=== PATIENT | male | born 1945 | race Caucasian/White ===

== ENCOUNTER 2020-08-14 16:00 | Inpatient (IN) | payer MEDICARE, OTHER ==
[~2020-08-14] VITALS: Ht 167.6 cm; Wt 83.0 kg
[2020-08-14 17:37] LABS: BASOPHILS # (AUTO) 0.1 K/uL (0.0-8.0); BASOPHILS % (AUTO) 0.3 % (0.0-2.0); HEMATOCRIT 28.7 % (36.7-47.1); HEMOGLOBIN 9.7 g/dL (12.5-16.3); LYMPHOCYTES # (AUTO) 1.3 K/uL (20.0-40.0); LYMPHOCYTES % (AUTO) 5.2 % (20.5-51.5); MEAN CORPUSCULAR HEMOGLOBIN 30.6 uug (23.8-33.4); MEAN CORPUSCULAR HGB CONC 34 g/dL (32.5-36.3); MEAN CORPUSCULAR VOLUME 90.3 fL (73.0-96.2); MONOCYTES # (AUTO) 1.2 K/uL (2.0-10.0); MONOCYTES % (AUTO) 4.8 % (0.0-11.0); NEUTROPHILS # (AUTO) 22.5 K/uL (1.8-8.9); NEUTROPHILS % (AUTO) 89.7 % (38.5-71.5); PLATELET COUNT (AUTO) 300 K/uL (152-348); RED BLOOD CELL COUNT(AUTO) 3.18 MIL/uL (4.06-5.63); WHITE BLOOD COUNT (AUTO) 25.1 K/uL (3.6-10.2)
[2020-08-14 17:48] LABS: CARBON DIOXIDE 24 mmol/L (21-32); CHLORIDE 104 mmol/L (98-107); CREATININE 2.1 mg/dL (0.6-1.3); GLUCOSE 209 mg/dL (74-106); POTASSIUM 4.4 mmol/L (3.5-5.1); UREA NITROGEN, BLOOD 36 mg/dL (7-18)
[2020-08-14 17:54] LABS: ETHANOL < 3 MG/DL (0-0)
[2020-08-14 17:56] LABS: ALANINE AMINOTRANSFERASE 17 U/L (16-63); ALKALINE PHOSPHATASE 78 U/L (50-136); ASPARTATE AMINOTRANSFERASE 8 U/L (15-37); BILIRUBIN,DIRECT 0.1 mg/dL (0.0-0.2); BILIRUBIN,TOTAL 0.3 mg/dL (0.2-1.0); CREATINE KINASE, TOTAL 77 U/L (39-308); TOTAL PROTEIN, SERUM 7.2 g/dL (6.4-8.2)
[2020-08-14 17:57] LABS: ACETAMINOPHEN < 2.0 ug/mL (10-30)
[2020-08-14 18:00] LABS: THYROID STIMULATING HORMONE 0.776 mIU/mL (0.358-3.740)
[2020-08-14] MEDS ORDERED: TUBE5VIA2 ID (18:09)
[2020-08-14] MEDS ORDERED: LINA5TAB PO (18:09)
[2020-08-14] MEDS ORDERED: BISA10SU61 RC (18:09)
[2020-08-14] MEDS ORDERED: VITA-287 PO (18:09)
[2020-08-14] MEDS ORDERED: DOCU100C36 PO (18:09)
[2020-08-14] MEDS ORDERED: INSU3INS6 SQ (18:09)
[2020-08-14] MEDS ORDERED: LISI10TA29 PO (18:09)
[2020-08-14] MEDS ORDERED: ASCO500T10 PO (18:09)
[2020-08-14] MEDS ORDERED: SENN-22 PO (18:09)
[2020-08-14] MEDS ORDERED: MAG-55 PO (18:09)
[2020-08-14] MEDS ORDERED: METF-495 PO (18:09)
[2020-08-14] MEDS ORDERED: ICOS1CAP2 (18:09)
[2020-08-14] MEDS ORDERED: MV-M1TAB18 PO (18:09)
[2020-08-14] MEDS ORDERED: POLY17PO4 GT (18:09)
[2020-08-14] MEDS ORDERED: CEFTRIAXONE 1 G in IV DEXTROSE 5% 50 ML IV ONE (19:30)
--- NOTE | 2020-08-14 20:40 | NUR ---
After inserting iv patient became cooperative with no distress noted. Restraints removed.
[2020-08-14] MEDS ORDERED: CEFTRIAXONE /D5W 50ML IVPB **ER PYXIS IV ONE (20:45)
[2020-08-14] MEDS ORDERED: HALOPERIDOL LACTATE 5 MG/1 ML VIAL IV ONE (21:00)
[2020-08-14] MEDS ORDERED: diphenhydrAMINE 50 MG/1 ML VIAL IV ONE (21:00)
[2020-08-14] MEDS ORDERED: LORAZEPAM 2 MG/1 ML VIAL IV ONE (21:00)
[2020-08-14 21:03] LABS: *BILIRUBIN,URIN NEGATIVE (NEGATIVE); *BLOOD, URINE 3+ (NEGATIVE); *COLOR,URINE YELLOW (YELLOW); *KETONES,URINE NEGATIVE (NEGATIVE); *UROBILINOGEN,URINE 0.2 E.U./dl (NORMAL); LEUKOCYTE ESTERASE ,URINE TRACE (NEGATIVE); NITRITE, URINE NEGATIVE (NEGATIVE); PH,URINE 5.5 (5.0-8.0); UGLUCOSE NEGATIVE (NEGATIVE)
[2020-08-14] MEDS ORDERED: LORAZEPAM 2 MG/1 ML VIAL ONE (21:04)
[2020-08-14] MEDS ORDERED: diphenhydrAMINE 50 MG/1 ML VIAL ONE (21:05)
[2020-08-14] MEDS ORDERED: HALOPERIDOL LACTATE 5 MG/1 ML VIAL ONE (21:05)
[2020-08-14 21:07] LABS: *CLARITY,URINE HAZY (CLEAR)
[2020-08-14 21:13] LABS: BACTERIA,URINE MANY /HPF (NONE SEEN); RBC,URINE 50-80 /HPF (0-3); SQUAMOUS EPITHELIAL CELL,UR FEW /HPF (NONE SEEN)
[2020-08-14 21:23] LABS: *AMPHETAMINE, URINE NEGATIVE (NEGATIVE); *CANNABINOID, URINE NEGATIVE (NEGATIVE); *COCCAINE, URINE NEGATIVE (NEGATIVE); *OPIATE, URINE NEGATIVE (NEGATIVE); *PHENCYCLIDINE SCREEN,URINE NEGATIVE (NEGATIVE)
--- NOTE | 2020-08-14 21:45 | NUR ---
non destructive testing technician Aj called with critical results for patient: Lactic acid 4.4, MD Olivarez made aware. Pending orders at this time.
[2020-08-14] MEDS ORDERED: BISACODYL 10 MG SUPP.RECT RC PRN (23:15)
[2020-08-14] MEDS ORDERED: ONDANSETRON 4 MG/2 ML VIAL IV PRN (23:15)
[2020-08-14] MEDS ORDERED: MORPHINE SULFATE 2 MG/1 ML DISP.SYRIN IV PRN (23:15)
[2020-08-14] MEDS ORDERED: ACETAMINOPHEN 325 MG TABLET PO PRN (23:15)
[2020-08-14] MEDS ORDERED: VANCOMYCIN IV 1,500 MG in IV DEXTROSE 5% 500 ML IV ONE (23:45)
--- NOTE | 2020-08-15 00:30 | NUR ---
Transfered to 3rd floor Tele via [employer] for [employer].
--- NOTE | 2020-08-15 00:35 | NUR ---
ADMITTED PATIENT IN TELE TD UNDER THE CARE OF DR MAYER. PATIENT AWAKE WITH FORGETFULNESS, PATIENT AGGRESSIVE, HOSTILE WHEN GIVING CARE. PATIENT SPEAK [place] R[place] BUT UNDERSTAND FRENCH. PATIENT RESISTIVE WITH CARE, CONT TO MONITOR.
[2020-08-15] MEDS ORDERED: VANCOMYCIN 1000 MG VIAL ONE (01:16)
[2020-08-15] MEDS ORDERED: VANCOMYCIN HCL 500 MG VIAL ONE (01:17)
[2020-08-15] MEDS ORDERED: PIPERACILLIN/TAZOBACTAM/D5W 100 ML ONE (01:18)
[2020-08-15 01:56] VITALS: BP 121/40
[2020-08-15] MEDS: IV 1/2NS 1000 ML 1,000 ML IV PRN ×2 (02:31→22:07)
[2020-08-15] MEDS: PIPERACILLIN/TAZO 2.25 G in IV DEXTROSE 5% 50 ML IV SCH ×4 (02:31→20:18)
[2020-08-15 04:06] VITALS: BP_SYST 114; BP_SYST 151; BP_DIAS 53; BP_DIAS 66
[2020-08-15] MEDS: LORAZEPAM 2 MG/1 ML VIAL IV PRN (05:18)
--- NOTE | 2020-08-15 05:22 | NUR ---
Patient alert awake but with confusion, patient resistive with care, unredirectable. Patient aggressive, hits staff, refused care, refused vital signs, refused lab works. Patient given ativan as ordered, will continue to offer lab draw. cont to monitor. Patient on tele sinus rhythm, no s/s of pain, no s/s of sob. incontinent of bowel and bladder. Patient reorient with yoruba speaking staff but not effective, cont to monitor.
--- NOTE | 2020-08-15 05:26 | NUR ---
Patient refused pictures taken on right and left groin redness, tries to kick staff.
[2020-08-15] MEDS: PANTOPRAZOLE SODIUM 40 MG TABLET.DR PO SCH (06:21)
--- NOTE | 2020-08-15 07:25 | NUR ---
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 Endorsed to am Rn regarding the information.
--- NOTE | 2020-08-15 07:46 | NUR ---
Patient somewhat agitated and anxious with some confusion resisting care. Talked and approached calmly. Wants to go back to sleep. IV on left arm patent and intact. Safety precautions maintained. Kept comfortable. Call light in reach.
[2020-08-15 08:00] VITALS: BP 125/80
[2020-08-15] MEDS ORDERED: PIPERACILLIN/TAZO 2.25 G in IV DEXTROSE 5% 50 ML IV ONE (08:00)
[2020-08-15] MEDS: SENNOSIDES/DOCUSATE SODIUM TABLET PO SCH (09:45)
--- NOTE | 2020-08-15 10:29 | NUR ---
Spoke with Noemi sister and given update. She said pt is mentally delayed and will refuse care bec he doesn't know anyone. Assured her will do our best to take care of him. No complaints at this time.
[2020-08-15] MEDS ORDERED: DEXTROSE 50% 50 ML DISP.SYRIN IV PRN (11:30)
[2020-08-15] MEDS: BLOOD SUGAR DIAGNOSTIC 1 EACH STRIP VI SCH ×3 (11:30→20:27)
--- NOTE | 2020-08-15 12:10 | NUR ---
Patient refusing blood sugar check. Also refused morning meds. Tried to talk calmly and explained risks and benefits but patient gets angry and aggressive and said he doesn't want to. Patient is uncooperative with care. MD made aware.
--- NOTE | 2020-08-15 12:47 | NUR ---
Dr. Sams with new order for psych consult noted and carried out. Dr. Montejo is insulation blanket maker and made aware.
[2020-08-15 14:00] VITALS: BP 111/90
--- NOTE | 2020-08-15 14:00 | NUR ---
Patient refused to eat lunch despite encouragement from staff. Also refused lab draw and gets angry when explained, saying he wants to sleep and needs nothing. aware.
--- NOTE | 2020-08-15 16:58 | NUR ---
Patient pulled out IV line. Refused iv reinsertion and got angry and belligerent. Will try again later.
--- NOTE | 2020-08-15 18:50 | NUR ---
Inserted 22g Iv on right hand with good backflow. Patient tolerated procedure. Family is here visiting. Called lab and they're going to come and draw. No complaints at this time.
[2020-08-15 19:25] LABS: BASOPHILS % (AUTO) 0.2 % (0.0-2.0); EOSINOPHILS # (AUTO) 0.1 K/uL (0.0-0.7); HEMATOCRIT 30.9 % (36.7-47.1); HEMOGLOBIN 10.5 g/dL (12.5-16.3); LYMPHOCYTES # (AUTO) 0.9 K/uL (20.0-40.0); LYMPHOCYTES % (AUTO) 6.2 % (20.5-51.5); MEAN CORPUSCULAR HEMOGLOBIN 30.7 uug (23.8-33.4); MEAN CORPUSCULAR HGB CONC 34 g/dL (32.5-36.3); MEAN CORPUSCULAR VOLUME 90.3 fL (73.0-96.2); MONOCYTES # (AUTO) 0.6 K/uL (2.0-10.0); NEUTROPHILS # (AUTO) 12.8 K/uL (1.8-8.9); NEUTROPHILS % (AUTO) 88.6 % (38.5-71.5); PLATELET COUNT (AUTO) 329 K/uL (152-348); RED BLOOD CELL COUNT(AUTO) 3.42 MIL/uL (4.06-5.63); WHITE BLOOD COUNT (AUTO) 14.5 K/uL (3.6-10.2)
[2020-08-15 19:30] LABS: ALANINE AMINOTRANSFERASE 15 U/L (16-63); ALKALINE PHOSPHATASE 88 U/L (50-136); ASPARTATE AMINOTRANSFERASE 12 U/L (15-37); BILIRUBIN,TOTAL 0.5 mg/dL (0.2-1.0); CARBON DIOXIDE 27 mmol/L (21-32); CHLORIDE 103 mmol/L (98-107); CHOLESTEROL 128 mg/dL (<200); CREATININE 1.7 mg/dL (0.6-1.3); GLUCOSE 266 mg/dL (74-106); HDL CHOLESTEROL 48 mg/dL (40-60); PHOSPHOROUS 2.1 mg/dL (2.5-4.9); POTASSIUM 4.1 mmol/L (3.5-5.1); TOTAL PROTEIN, SERUM 7.5 g/dL (6.4-8.2); TRIGLYCERIDES 68 MG/DL (30-150); UREA NITROGEN, BLOOD 23 mg/dL (7-18)
[2020-08-15 19:31] LABS: IRON, SERUM 17 ug/dL (50-175)
[2020-08-15 20:00] VITALS: BP 112/67
[2020-08-15] MEDS: DOCUSATE SODIUM 100 MG CAPSULE PO SCH (20:27)
[2020-08-15] MEDS: INSULIN REGULAR, HUMAN 300 UNITS/3 ML VIAL SQ PRN (21:05)
[2020-08-16 00:42] VITALS: BP 123/63
[2020-08-16] MEDS: PIPERACILLIN/TAZO 2.25 G in IV DEXTROSE 5% 50 ML IV SCH ×4 (01:53→19:26)
--- NOTE | 2020-08-16 05:00 | NUR ---
Pt very agitated and combative. Pulled out IV. Refuses to let this RN reinsert another. Rocio Layton notified.
--- NOTE | 2020-08-16 05:37 | NUR ---
Pt slept intermittently throughout the night. Encouraged to drink fluids but patient refused. Denies pain or discomfort. Another attempt for IV was attempted, but patient refused. Rocio Layton notified. Safety and comfort provided. SR and ST on monitor up to 105. No other issues or concerns at this time, will endorse to day shift.
[2020-08-16] MEDS ORDERED: HALOPERIDOL LACTATE 5 MG/1 ML VIAL IM PRN (06:00)
[2020-08-16] MEDS: PANTOPRAZOLE SODIUM 40 MG TABLET.DR PO SCH (06:22)
[2020-08-16] MEDS: BLOOD SUGAR DIAGNOSTIC 1 EACH STRIP VI SCH ×4 (06:32→20:33)
--- NOTE | 2020-08-16 06:46 | NUR ---
Haldol 0.5mg was ordered, tolerated injection well. Pt was able to be encouraged to eat 1 tuna sandwich and drink 240ml of juice. Pt still refuses IV, will endorse to day shift.
--- NOTE | 2020-08-16 06:46 | NUR ---
Pt was given ham sandwich, not tuna
[2020-08-16 07:25] LABS: IRON, SERUM 22 ug/dL (50-175)
[2020-08-16 07:26] LABS: ALANINE AMINOTRANSFERASE 17 U/L (16-63); ALKALINE PHOSPHATASE 73 U/L (50-136); ASPARTATE AMINOTRANSFERASE 9 U/L (15-37); BILIRUBIN,TOTAL 0.4 mg/dL (0.2-1.0); CARBON DIOXIDE 25 mmol/L (21-32); CHLORIDE 104 mmol/L (98-107); CREATINE KINASE, TOTAL 128 U/L (39-308); CREATININE 1.6 mg/dL (0.6-1.3); GLUCOSE 146 mg/dL (74-106); MAGNESIUM 1.8 mg/dL (1.8-2.4); PHOSPHOROUS 2.6 mg/dL (2.5-4.9); POTASSIUM 3.9 mmol/L (3.5-5.1); TOTAL PROTEIN, SERUM 6.8 g/dL (6.4-8.2); UREA NITROGEN, BLOOD 22 mg/dL (7-18); VANCOMYCIN,RANDOM 6.6 ug/mL (18.0-26.0)
--- NOTE | 2020-08-16 07:30 | NUR ---
START OF SHIFT received change of shift report on patient. MONGOLIAN speaking, AMS, pt on tele SNR, on room air, no signs of distress, no reports of pain reported. pt incontinent, wearing diaper, bed in low and locked position, call light within reach, safety and fall precautions in place, will continue with plan of care.
[2020-08-16 07:51] LABS: BASOPHILS # (AUTO) 0.1 K/uL (0.0-8.0); BASOPHILS % (AUTO) 0.4 % (0.0-2.0); EOSINOPHILS # (AUTO) 0.2 K/uL (0.0-0.7); EOSINOPHILS % (AUTO) 1.8 % (0.0-7.0); HEMATOCRIT 28.9 % (36.7-47.1); LYMPHOCYTES # (AUTO) 1.2 K/uL (20.0-40.0); LYMPHOCYTES % (AUTO) 9.7 % (20.5-51.5); MEAN CORPUSCULAR HEMOGLOBIN 31.5 uug (23.8-33.4); MEAN CORPUSCULAR HGB CONC 35 g/dL (32.5-36.3); MEAN CORPUSCULAR VOLUME 90.8 fL (73.0-96.2); MONOCYTES % (AUTO) 8.3 % (0.0-11.0); NEUTROPHILS # (AUTO) 9.5 K/uL (1.8-8.9); NEUTROPHILS % (AUTO) 79.8 % (38.5-71.5); PLATELET COUNT (AUTO) 311 K/uL (152-348); RED BLOOD CELL COUNT(AUTO) 3.18 MIL/uL (4.06-5.63); WHITE BLOOD COUNT (AUTO) 11.9 K/uL (3.6-10.2)
[2020-08-16 08:00] VITALS: BP 148/70
[2020-08-16] MEDS ORDERED: VANCOMYCIN IV 1,000 MG in IV DEXTROSE 5% 250 ML IV ONE (08:00)
[2020-08-16 08:09] LABS: FERRITIN 220 ng/mL (26-388)
[2020-08-16] MEDS: SENNOSIDES/DOCUSATE SODIUM TABLET PO SCH (09:00)
[2020-08-16] MEDS: risperiDONE 0.5 MG TABLET PO SCH ×4 (09:00→17:07)
--- NOTE | 2020-08-16 09:00 | NUR ---
pt d/c from telemetry, now on M/S
[2020-08-16] MEDS: INSULIN REGULAR, HUMAN 300 UNIT/3 ML VIAL SQ PRN ×2 (09:46→17:10)
--- NOTE | 2020-08-16 09:52 | NUR ---
pt refusing all morning medications, multiple attempts made to educate pt on importance of medication compliance.
--- NOTE | 2020-08-16 10:15 | NUR ---
midline put in for pt, pt tolerated well. will administer IV medications
[2020-08-16 16:38] VITALS: BP 116/41
--- NOTE | 2020-08-16 18:11 | NUR ---
END OF SHIFT pt in bed resting, family at bedside. pt was able to agree to medication and eating dinner with sister at bedside, pt AMS a/ox1, Amharic speaking, best if spoken to like a child, pt needs redirection, pt on room air, no signs of distress, to reports of pain noted. pt voiding via diaper, IV access on the right upper arm midline 18g running 1/2NS at 75cc. bed in low and locked position, call light within reach, fall, and safety precautions in place. will endorse to oncoming nurse.
[2020-08-16 18:31] LABS: *OCCULT BLOOD STOOL NEGATIVE (NEGATIVE)
--- NOTE | 2020-08-16 19:30 | NUR ---
RECEIVED PT CONFUSED. PT IN NO ACUTE DISTRESS. IV INTACT. SAFETY AND COMFORT PROVIDED. WILL CONTINUE TO MONITOR.
[2020-08-16 20:00] VITALS: BP 101/68
[2020-08-16] MEDS: IV 1/2NS 1000 ML 1,000 ML IV PRN (20:04)
[2020-08-16] MEDS: DOCUSATE SODIUM 100 MG CAPSULE PO SCH (20:08)
[2020-08-16] MEDS: INSULIN REGULAR, HUMAN 300 UNITS/3 ML VIAL SQ PRN (20:31)
[2020-08-17] MEDS: PIPERACILLIN/TAZO 2.25 G in IV DEXTROSE 5% 50 ML IV SCH ×2 (02:16→07:55)
[2020-08-17 04:42] VITALS: BP 118/58
[2020-08-17 04:45] VITALS: BP 137/68
--- NOTE | 2020-08-17 04:45 | NUR ---
at 0440h Pt found on the floor and clapping. Assisted patient back to bed with three person assist . Pt denies pain. Pt able to move all extremities without difficulty. Skin assessment done. No skin breakdown. Neurological assessment done. Vital signs stable. Pt is confuse prior to fall so level of consciousness is not valid. Nursing printing worker supervisor, charge nurse and doctor aware of the incident. will continue to monitor
--- NOTE | 2020-08-17 06:05 | NUR ---
PT REFUSED PROTONIX MEDICATION. PT IN NO ACUTE DISTRESS. WILL CONTINUE TO MONITOR.
--- NOTE | 2020-08-17 06:08 | NUR ---
PT SLEPT INTERMITTENTLY.PRIOR TO FALL PT IS CONFUSED BASELINE. PT POST FALL VITAL SIGNS STABLE. PT DENIES PAIN. NEUROCHECK DONE. PT STILL TRYING TO GET OUT OF THE BED. ALL EXTREMITIES MOVING WITH NO PAIN BUT WEAKNESS ON BILATERAL LEGS WHICH IS BASELINE ON THE PT. PT IN NO ACUTE DISTRESS. IV INTACT. PRESCRIBED MEDICATION GIVEN AND PT TOLERATED IT WELL. SAFETY AND COMFORT PROVIDED. WILL ENDORSE TO INCOMING NURSE FOR CONTINUITY OF CARE.
[2020-08-17] MEDS: PANTOPRAZOLE SODIUM 40 MG TABLET.DR PO SCH (06:13)
[2020-08-17] MEDS: BLOOD SUGAR DIAGNOSTIC 1 EACH STRIP VI SCH ×4 (06:31→20:39)
--- NOTE | 2020-08-17 07:32 | NUR ---
Notify Noemi (sister) that her brother fell. Pt in no acute distress. Denies pain.
[2020-08-17] MEDS: INSULIN REGULAR, HUMAN 300 UNIT/3 ML VIAL SQ PRN ×3 (07:54→16:45)
[2020-08-17 08:06] LABS: A/G RATIO 1.1 (0.7-1.7); ALBUMIN 3.2 g/dL (2.9-4.4); ALPHA-1-GLOBULIN 0.2 g/dL (0.0-0.4); ALPHA-2-GLOBULIN 0.9 g/dL (0.4-1.0); BETA GLOBULIN 0.8 g/dL (0.7-1.3); GAMMA GLOBULIN 0.8 g/dL (0.4-1.8); GLOBULIN, TOTAL 2.8 g/dL (2.2-3.9); M-SPIKE Not Observed g/dL (Not Observed)
[2020-08-17] MEDS: risperiDONE 0.5 MG TABLET PO SCH ×2 (08:06→16:02)
[2020-08-17] MEDS: SENNOSIDES/DOCUSATE SODIUM TABLET PO SCH (08:06)
[2020-08-17 11:07] LABS: BASOPHILS % (AUTO) 0.5 % (0.0-2.0); EOSINOPHILS # (AUTO) 0.1 K/uL (0.0-0.7); EOSINOPHILS % (AUTO) 1.8 % (0.0-7.0); HEMATOCRIT 30.2 % (36.7-47.1); HEMOGLOBIN 10.2 g/dL (12.5-16.3); LYMPHOCYTES % (AUTO) 15.6 % (20.5-51.5); MEAN CORPUSCULAR HGB CONC 34 g/dL (32.5-36.3); MEAN CORPUSCULAR VOLUME 91.9 fL (73.0-96.2); MONOCYTES # (AUTO) 0.5 K/uL (2.0-10.0); MONOCYTES % (AUTO) 8.1 % (0.0-11.0); NEUTROPHILS # (AUTO) 4.6 K/uL (1.8-8.9); PLATELET COUNT (AUTO) 341 K/uL (152-348); RED BLOOD CELL COUNT(AUTO) 3.29 MIL/uL (4.06-5.63); WHITE BLOOD COUNT (AUTO) 6.2 K/uL (3.6-10.2)
[2020-08-17 11:08] LABS: CARBON DIOXIDE 25 mmol/L (21-32); CHLORIDE 103 mmol/L (98-107); CREATININE 1.7 mg/dL (0.6-1.3); GLUCOSE 295 mg/dL (74-106); MAGNESIUM 2.1 mg/dL (1.8-2.4); PHOSPHOROUS 2.6 mg/dL (2.5-4.9); POTASSIUM 3.9 mmol/L (3.5-5.1); UREA NITROGEN, BLOOD 16 mg/dL (7-18)
[2020-08-17] MEDS: IV 1/2NS 1000 ML 1,000 ML IV PRN (14:02)
[2020-08-17 15:59] VITALS: BP 115/59
[2020-08-17] MEDS ORDERED: PIPERACILLIN SODIUM/TAZOBACTAM 3.37 G in IV DEXTROSE 5% 100 ML IV SCH (16:00)
[2020-08-17 20:21] VITALS: BP 123/51
[2020-08-17] MEDS: DOCUSATE SODIUM 100 MG CAPSULE PO SCH (20:39)
[2020-08-17] MEDS: INSULIN REGULAR, HUMAN 300 UNITS/3 ML VIAL SQ PRN (20:42)
[2020-08-17] MEDS: LORAZEPAM 2 MG/1 ML VIAL IV PRN (20:52)
[2020-08-17] MEDS: AMOXIcillin 500 MG CAPSULE PO SCH ×2 (21:27→22:00)
[2020-08-18 04:00] VITALS: BP 129/76
--- NOTE | 2020-08-18 05:20 | NUR ---
Pt slept throughout the night. IV intact, running fluids as ordered. Pt very restless and agitated at beginning of shift, given Ativan IV and tolerated well. Refused PO medications. Tried to encourage patient multiple times to take medications, patient refused. Refused oral fluids or snacks that were provided to patient. Denies pain. No acute distress noted. Safety and comfort provided. No other issues or concerns at this time, will endorse to day shift.
[2020-08-18] MEDS: AMOXIcillin 500 MG CAPSULE PO SCH (06:07)
[2020-08-18] MEDS: PANTOPRAZOLE SODIUM 40 MG TABLET.DR PO SCH (06:07)
[2020-08-18] MEDS: IV 1/2NS 1000 ML 1,000 ML IV PRN (06:17)
[2020-08-18] MEDS: BLOOD SUGAR DIAGNOSTIC 1 EACH STRIP VI SCH ×2 (06:31→11:15)
[2020-08-18] MEDS: risperiDONE 0.5 MG TABLET PO SCH (08:02)
[2020-08-18] MEDS: SENNOSIDES/DOCUSATE SODIUM TABLET PO SCH (08:02)
[2020-08-18] MEDS ORDERED: RISP0.5T5 PO (10:34)
[2020-08-18] MEDS ORDERED: AMOX500C2 PO (10:34)
[2020-08-18 11:34] VITALS: BP 100/66
--- NOTE | 2020-08-18 12:11 | NUR ---
RN REPORT GIVEN TO [facility] TO [facility]
[2020-08-18] MEDS ORDERED: GLUCERNA SHAKE VANILLA 237 ML CAN PO SCH (13:00)
--- NOTE | 2020-08-18 14:22 | NUR ---
dc orders received noted and carried out.dc report given to the [facility],dc midline per md orders,pt left the facility via ambulances in stable condition
== END 2020-08-18 14:30 | DRG 871 ==
LOC: ER 16:00 → TELE3 23:38 → UNDOADMIN 23:38 → TELE-TD3 23:40 → TELE3 08-15 14:45 → MEDSURG3 08-16 08:20
PROVIDERS: ADMIT Student in an Organized Health Care Education/Training Program; ATTEND Student in an Organized Health Care Education/Training Program
PROC: 05H533Z Insertion of Infusion Device into Right Subclavian Vein, Percutaneous Approach (ICD-10-PCS; principal; 2020-08-16)
PROC: B546ZZA Ultrasonography of Right Subclavian Vein, Guidance (ICD-10-PCS; 2020-08-16)
DX: A41.9 Sepsis, unspecified organism (principal); G92 Toxic encephalopathy; N17.0 Acute kidney failure with tubular necrosis; N39.0 Urinary tract infection, site not specified; E87.2 Acidosis; E11.22 Type 2 diabetes mellitus with diabetic chronic kidney disease; N18.2 Chronic kidney disease, stage 2 (mild); D64.9 Anemia, unspecified; E66.9 Obesity, unspecified; F03.90 Unspecified dementia, unspecified severity, without behavioral disturbance, psychotic disturbance, mood disturbance, and anxiety; F32.9 Major depressive disorder, single episode, unspecified; F41.9 Anxiety disorder, unspecified; K82.8 Other specified diseases of gallbladder; K83.8 Other specified diseases of biliary tract; R32 Unspecified urinary incontinence; Z20.822 Contact with and (suspected) exposure to COVID-19; Z86.16 Personal history of COVID-19; R53.1 Weakness; F39 Unspecified mood [affective] disorder; Z79.84 Long term (current) use of oral hypoglycemic drugs; F29 Unspecified psychosis not due to a substance or known physiological condition; B96.20 Unspecified Escherichia coli [E. coli] as the cause of diseases classified elsewhere; D63.8 Anemia in other chronic diseases classified elsewhere; K59.00 Constipation, unspecified; N40.1 Benign prostatic hyperplasia with lower urinary tract symptoms
CPT/HCPCS: 36415; 70030-TC; 71045; 83550; 83605; 83735; 83970; 84100; 84153; 84155; 84165; 84443; 85025; 87040; 87077; 87086; 93005; A4663; C1758; G0378; G0480; J0696; J1200; J1630; J1815; J2060; J2543; J3370; J3490; J7030; J7040; J7060